=== PATIENT | female | born 1945 | race Asian ===

== ENCOUNTER → 2017-10-10 | Outpatient (CLI) | payer MEDICARE, OTHER | LOC: M.RAD 10:01 | DX: M77.31 Calcaneal spur, right foot (principal) ==

== ENCOUNTER → 2018-07-07 | Outpatient (CLI) | payer MEDICARE, OTHER | LOC: M.CT 10:02 | DX: K42.9 Umbilical hernia without obstruction or gangrene (principal); Z88.1 Allergy status to other antibiotic agents; Z90.49 Acquired absence of other specified parts of digestive tract ==

== ENCOUNTER 2018-07-16 14:26 | Emergency (ER) | payer MEDICARE, OTHER ==
[~2018-07-16] VITALS: Ht 162.6 cm; Wt 79.6 kg
[2018-07-16] MEDS ORDERED: ZYLOPRIM300 MG PO (14:40)
[2018-07-16] MEDS ORDERED: OXYBUTYNIN 5 MG5 M2 PO (14:40)
[2018-07-16] MEDS ORDERED: ASPIR 8181 MG PO (14:40)
[2018-07-16] MEDS ORDERED: CELEBREX 200 M200 M1 PO (14:40)
[2018-07-16] MEDS ORDERED: CARVEDILOL12.5 MG PO (14:41)
[2018-07-16] MEDS ORDERED: CRESTOR20 MG PO (14:41)
[2018-07-16] MEDS ORDERED: K-TAB10 MEQ PO (14:41)
[2018-07-16] MEDS ORDERED: COZAAR 25 MG TA25 M1 PO (14:41)
[2018-07-16] MEDS ORDERED: NORVASC10 MG PO (14:42)
[2018-07-16] MEDS ORDERED: GLUCOPHAGE XR500 MG PO (14:42)
[2018-07-16] MEDS ORDERED: URSODIOL300 MG PO (14:44)
[2018-07-16 14:45] LABS: ABSOLUTE BASOPHILS 0.1 thou/uL (0.0-0.2); ABSOLUTE EOSINOPHILS 0.4 thou/uL (0.0-0.7); ABSOLUTE MONOCYTES 0.7 thou/uL (0.0-1.2); ABSOLUTE NEUTROPHILS 7.5 thou/uL (1.6-8.1); BASOPHILS 0.9 %; EOSINOPHILS 3.4 %; HEMOGLOBIN 13.8 gm/dL (12.0-15.0); LYMPHOCYTES 18.7 %; MCH 30.1 pg (26.0-34.0); MCHC 33.6 g/dL (28.0-37.0); MCV 89.5 fL (80.0-100.0); MONOCYTES 6.2 %; MPV 7.7 fl. (7.2-11.1); NUCLEATED RBCS 0 /100WBC; PLATELET COUNT* 277 thou/uL (150-400); POLYS 70.8 %; RBC 4.59 mil/uL (4.20-5.00); RDW-CV 16.4 % (10.5-14.5); WBC 10.5 thou/uL (4.0-11.0)
[2018-07-16 14:57] LABS: APTT 31.4 Seconds (25.0-31.3); PROTIME 10.2 Seconds (9.20-11.50)
[2018-07-16 15:29] LABS: ANION GAP 6 mmol/L (7-16); BUN 21 mg/dL (7-18); CALCIUM 9.4 mg/dL (8.5-10.1); CHLORIDE 102 mmol/L (98-107); CO2 32 mmol/L (21-32); CREATININE 1.2 mg/dL (0.6-1.3); GLUCOSE 135 mg/dL (70-99); POTASSIUM 3.6 mmol/L (3.5-5.1); SODIUM 140 mmol/L (136-145); TROPONIN-I LEVEL <0.06 ng/mL (<0.06)
[2018-07-16 15:34] LABS: ALBUMIN 3.7 g/dL (3.4-5.0); ALKALINE PHOSPHATASE 80 U/L (46-116); CK-MB MASS < 0.5 ng/mL (<0.5-3.6); LIPASE 142 U/L (73-393); MAGNESIUM 2.2 mg/dL (1.8-2.4); NT-PRO BRAIN NAT PEPTIDE 17 pg/mL (<300); SGOT 21 U/L (15-37); SGPT 23 U/L (30-65); TOTAL BILIRUBIN 0.4 mg/dL (<0.1-1.0); TOTAL PROTEIN 7.8 g/dL (6.4-8.2)
[2018-07-16 17:08] VITALS: BP 125/59
--- NOTE | 2018-07-17 13:18 | EKG ---
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: : 1945 Requested By: Asher Asif Order Number: [id number] MD: Alek Bran Measurements Intervals [place] Rate: 65 P: 23 NY: 216 QRS: -30 QRSD: 93 T: 55 QT: 404 QTc: 421 Interpretive Statements Sinus rhythm Borderline prolonged [place] interval Left axis deviation Abnormal R-wave progression, late transition Borderline T wave abnormalities No previous ECG available for comparison Electronically Signed On 07-17-2018 13:18:03 [employer] by Alek Bran [email or web address] <ELECTRONICALLY SIGNED> By: Alek Bran MD, [facility] 07/17/18 1318 1643 1643 Alek Bran MD, [facility] /EPI
--- NOTE | 2018-07-17 13:18 | EKG ---
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 : 1945 Requested By: Asher Asif Order Number: [id number] MD: Alek Bran Measurements Intervals [place] Rate: 74 P: 41 SD: 63 QRS: -36 QRSD: 92 T: 64 QT: 356 QTc: 395 Interpretive Statements Sinus rhythm, artifact Short SD interval LAE, consider biatrial enlargement Left axis deviation Abnormal R-wave progression, late transition Minimal ST depression, inferior leads Artifact in lead(s) I,II,III,aVR,aVL,aVF No previous ECG available for comparison Electronically Signed On 07-17-2018 13:17:59 [employer] by Alek Bran [email or web address] <ELECTRONICALLY SIGNED> By: Alek Bran MD, FACC 07/17/18 1317 1432 1432 Alek Bran MD, [facility] /EPI
== END 2018-07-16 17:09 | disposition home or self-care (01) ==
LOC: M.ERS 14:26
PROVIDERS: Family Medicine
DX: R07.89 Other chest pain (principal); R06.02 Shortness of breath; I10 Essential (primary) hypertension; E11.9 Type 2 diabetes mellitus without complications; E78.5 Hyperlipidemia, unspecified; Z90.710 Acquired absence of both cervix and uterus; Z88.8 Allergy status to other drugs, medicaments and biological substances; Z90.49 Acquired absence of other specified parts of digestive tract